=== PATIENT | female | born 1995 | race Caucasian/White ===

== ENCOUNTER 2021-04-04 18:13 | Emergency (ER) | payer OTHER ==
[~2021-04-04] VITALS: Ht 157.5 cm; Wt 70.3 kg
[2021-04-04 18:27] VITALS: BP 111/72
[2021-04-04 20:58] VITALS: BP 111/72
--- NOTE | 2021-04-04 20:58 | NUR ---
Patient discharged with v/s stable. Written and verbal after care instructions given and explained. Patient verbalized understanding. Ambulatory with steady gait. All questions addressed prior to discharge. Advised to follow up with PMD.
[2021-04-05 13:33] LABS: HEPATITIS B SURFACE ANTIGEN NEGATIVE (NEGATIVE)
== END 2021-04-04 20:57 | disposition home or self-care (01) ==
LOC: MED 18:13
DX: S60.451A Superficial foreign body of left index finger, initial encounter (principal); W46.0XXA Contact with hypodermic needle, initial encounter; Y93.89 Activity, other specified; Y92.89 Other specified places as the place of occurrence of the external cause; Y99.8 Other external cause status
CPT/HCPCS: 36415; 86592; 86702; 86803; 87340; 99283